=== PATIENT | male | born 1985 | race African-American/Black ===

== ENCOUNTER 2022-08-06 14:15 | Emergency (ER) | payer MEDICAID ==
[~2022-08-06] VITALS: Ht 172.7 cm; Wt 81.6 kg
--- NOTE | 2022-08-06 14:20 | NUR ---
Dr Huggins at the bedside for MSE.
[2022-08-06] MEDS ORDERED: LIDOCAINE HCL 1% 20 ML VIAL ONE (14:24)
[2022-08-06] MEDS ORDERED: NEOMY/BACITRA/POLYMYXIN B OINT UD PACKET TP ONE ×2 (14:30→14:32)
[2022-08-06] MEDS ORDERED: LIDOCAINE HCL 1% 20 ML VIAL TP ONE (14:30)
[2022-08-06] MEDS ORDERED: TDAP DIPH,PERTUSS,TET VAC/PF 0.5 ML DISP.SYRIN IM ONE ×2 (14:30→14:32)
--- NOTE | 2022-08-06 15:14 | NUR ---
X-RAY TECH WENT UP ALREADY TO DO X-RAY.
[2022-08-06 15:28] VITALS: BP 124/75
--- NOTE | 2022-08-06 15:28 | NUR ---
Patient discharged to home in stable condition. Written and verbal after care instructions given. Patient verbalizes understanding of instructions. Stressed follow up or return to ER for worsening s/s.
== END 2022-08-06 15:29 | disposition home or self-care (01) ==
LOC: ER 14:15
DX: S61.216A Laceration without foreign body of right little finger without damage to nail, initial encounter (principal); W23.0XXA Caught, crushed, jammed, or pinched between moving objects, initial encounter; Y93.89 Activity, other specified; Y92.89 Other specified places as the place of occurrence of the external cause; Y99.8 Other external cause status
CPT/HCPCS: 99283; 73140; 90715; 90471; 12001; J3490; A4663

== ENCOUNTER 2022-08-17 10:15 | Emergency (ER) | payer MEDICAID ==
[~2022-08-17] VITALS: Ht 172.7 cm; Wt 83.9 kg
--- NOTE | 2022-08-17 10:24 | NUR ---
JEN OCONNOR AT BEDSIDE FOR MSE
[2022-08-17 10:37] VITALS: BP 136/81
== END 2022-08-17 10:40 | disposition home or self-care (01) ==
LOC: ER 10:15
DX: S61.216D Laceration without foreign body of right little finger without damage to nail, subsequent encounter (principal); W26.8XXD Contact with other sharp object(s), not elsewhere classified, subsequent encounter
CPT/HCPCS: A4663